=== PATIENT | female | born 1985 | race Caucasian/White ===

== ENCOUNTER 2018-03-02 21:13 | Emergency (ER) | payer MEDICAID ==
[2018-03-02] MEDS: METHYLPREDNISOLONE 125 MG INJ IM (22:14)
[2018-03-02] MEDS: DIPHENHYDRAMINE 50 MG CAP PO (22:21)
== END 2018-03-02 22:33 | disposition home or self-care (01) ==
LOC: FTE 21:13
DX: L50.9 Urticaria, unspecified (principal)
CPT/HCPCS: 96372; 99284-25; J2930